=== PATIENT | female | born 1945 | race Caucasian/White ===

== ENCOUNTER → 2017-01-08 | Outpatient (CLI) | payer OTHER ==
[~2017-01-08] MED LIST: CALCIUM OYSTER500 MG PO; FISHOIL PO; MULTIVITAMINS PO; VITAMIN E400 UNIT PO; VITAMINC500 PO
== END ==
LOC: RAD 10:50
DX: Z12.31 Encounter for screening mammogram for malignant neoplasm of breast (principal)